=== PATIENT | female | born 1945 | race Caucasian/White ===

== ENCOUNTER 2020-10-11 19:01 | Inpatient (IN) ==
[2020-10-11] MEDS ORDERED: Morphine 4 MG/ML VIAL (1 ml) IV ONE (20:30)
[2020-10-11] MEDS ORDERED: Ondansetron 4 mg VIAL 2 MG/ML 2 ml VIAL IV ONE (20:30)
[2020-10-11] MEDS ORDERED: Iodixanol (CONTRAST) 320 MG/ML 100 ML SDV IV ONE (21:25)
[2020-10-11 21:43] LABS: ABS Basophils 0.1 10^3/ul (0-0.2); ABS Eosinophils 0.1 10^3/ul (0-0.6); ABS Lymphocytes 1.6 10^3/ul (1.0-4.8); ABS Monocytes 0.7 10^3/ul (0-0.8); ABS Neutrophils 11.2 10^3/ul (1.5-7.7); Eosinophil % 0.6 %; Hematocrit 39 % (35-47); Hemoglobin 13.3 g/dL (12.0-16.0); Lymphocyte % 11.8 %; Mean Corpuscular HGB Conc 34 g/dL (31-36); Mean Corpuscular Hemoglobin 29 pg (27-31); Mean Corpuscular Volume 84 fL (80-97); Mean Platelet Volume 10.1 fL (7.4-10.4); Platelet Count 183 10^3/uL (150-450); Red Blood Count 4.62 10^6 /uL (3.70-4.87); Red Cell Distribution Width 14 % (10-15); White Blood Count 13.6 10^3/uL (3.5-10.8)
[2020-10-11 22:02] LABS: ALT 22 U/L (7-52); AST 17 U/L (13-39); Albumin 4.1 g/dL (3.2-5.2); Albumin/Globulin Ratio 1.4 (1-3); Alkaline Phosphatase 97 U/L (34-104); BUN/Creatinine Ratio 14.9 (8-20); Blood Urea Nitrogen 11 mg/dL (6-24); C Reactive Protein 184.71 mg/L (<8.01); CO2 Carbon Dioxide 29 mmol/L (22-32); Calcium 9.5 mg/dL (8.6-10.3); Chloride 99 mmol/L (101-111); EGFR African American 93.1 (>60); EGFR Non-African American 76.9 (>60); Glucose 139 mg/dL (70-100); Lipase < 10 U/L (11.0-82.0); Sodium 136 mmol/L (135-145); Total Protein 7.1 g/dL (6.4-8.9)
[2020-10-11 22:04] LABS: Anion Gap 8 mmol/L (2-11); Potassium 2.6 mmol/L (3.5-5.0)
[2020-10-11] MEDS ORDERED: Potassium Chlor 20 meq TAB.ER PO ONE (22:35)
[2020-10-11 23:29] LABS: Urine Appearance Cloudy; Urine Bilirubin Negative (Negative); Urine Blood Negative (Negative); Urine Color Yellow; Urine Glucose Negative (Negative); Urine Ketones Negative (Negative); Urine Nitrite Negative (Negative); Urine Protein Negative (Negative); Urine Specific Gravity 1.039 (1.010-1.030); Urine Urobilinogen Negative (Negative)
[2020-10-11] MEDS ORDERED: Piperacillin/Tazobac ADVAN 3.375 GM in NS 0.9% 100 ml BAG 100 ML IV ONE (23:29)
[2020-10-11 23:45] LABS: Urine Bacteria 1+ (Absent); Urine Red Blood Cell 1+(3-5/hpf) (Absent); Urine Squamous Epithelial Cell Present (Absent); Urine White Blood Cell 1+(6-10/hpf) (Absent)
[2020-10-11 23:58] LABS: Magnesium 1.8 mg/dL (1.9-2.7)
[2020-10-12] MEDS ORDERED: Magnesium Sulfate IV 1GM/100ML 1 GM/100 ML BAG IV ONE (00:25)
[2020-10-12] MEDS ORDERED: Al Hydrox/Mg Hydrox/Simet LIQ 30 ML UDC PO PRN (00:30)
[2020-10-12] MEDS ORDERED: Ondansetron 4 mg VIAL 2 MG/ML 2 ml VIAL IV PRN (00:30)
[2020-10-12] MEDS ORDERED: Zosyn per Pharmacy NOTE FOLLOW UP SCH (01:00)
[2020-10-12] MEDS: KCL 20 MEQ/100 ML IVPREMIX 20 MEQ/100 ML BAG IV SCH ×5 (01:20→07:57)
[2020-10-12] MEDS: ZOSYN 3.375 GM Q8H per EXTENDED INFUSION IV SCH ×3 (04:16→20:04)
[2020-10-12 07:10] LABS: ABS Monocytes 0.4 10^3/ul (0-0.8); ABS Neutrophils 11.5 10^3/ul (1.5-7.7); Eosinophil % 0.1 %; Hematocrit 36 % (35-47); Hemoglobin 12.2 g/dL (12.0-16.0); Mean Corpuscular HGB Conc 34 g/dL (31-36); Mean Corpuscular Hemoglobin 29 pg (27-31); Mean Corpuscular Volume 84 fL (80-97); Mean Platelet Volume 10.7 fL (7.4-10.4); Platelet Count 164 10^3/uL (150-450); Red Blood Count 4.24 10^6 /uL (3.70-4.87); Red Cell Distribution Width 14 % (10-15)
[2020-10-12 07:38] LABS: BUN/Creatinine Ratio 12.3 (8-20); Calcium 8.8 mg/dL (8.6-10.3); EGFR African American 94.6 (>60); EGFR Non-African American 78.1 (>60); Magnesium 2.3 mg/dL (1.9-2.7); Potassium 3.2 mmol/L (3.5-5.0)
[2020-10-12] MEDS ORDERED: Calcium Polycarbophil 625mg TB PO SCH (09:00)
[2020-10-12] MEDS: Enoxaparin 40 MG/0.4 ML SYR SUBCUT SCH (09:59)
[2020-10-12] MEDS: Multivitamins/Minerals TAB PO SCH (09:59)
[2020-10-12] MEDS: Pilocarpine 2% OPTH.SOL 15 ML BTL BOTH EYES SCH ×4 (09:59→20:10)
[2020-10-12] MEDS: Latanoprost 0.005% 2.5 ml BTL BOTH EYES SCH (17:14)
[2020-10-13] MEDS: ZOSYN 3.375 GM Q8H per EXTENDED INFUSION IV SCH ×3 (03:27→20:38)
[2020-10-13 06:26] LABS: ABS Eosinophils 0.1 10^3/ul (0-0.6); ABS Lymphocytes 1.4 10^3/ul (1.0-4.8); ABS Monocytes 0.3 10^3/ul (0-0.8); ABS Neutrophils 4.6 10^3/ul (1.5-7.7); Eosinophil % 1.8 %; Hematocrit 33 % (35-47); Hemoglobin 11.7 g/dL (12.0-16.0); Lymphocyte % 22.1 %; Mean Corpuscular HGB Conc 35 g/dL (31-36); Mean Corpuscular Hemoglobin 30 pg (27-31); Mean Corpuscular Volume 85 fL (80-97); Platelet Count 162 10^3/uL (150-450); Red Blood Count 3.94 10^6 /uL (3.70-4.87); Red Cell Distribution Width 15 % (10-15); White Blood Count 6.5 10^3/uL (3.5-10.8)
[2020-10-13 06:46] LABS: BUN/Creatinine Ratio 10.9 (8-20); Calcium 8.6 mg/dL (8.6-10.3); EGFR African American 110.1 (>60); Potassium 2.9 mmol/L (3.5-5.0)
[2020-10-13] MEDS: Enoxaparin 40 MG/0.4 ML SYR SUBCUT SCH (08:26)
[2020-10-13] MEDS: Multivitamins/Minerals TAB PO SCH (08:27)
[2020-10-13] MEDS: Pilocarpine 2% OPTH.SOL 15 ML BTL BOTH EYES SCH ×4 (08:34→20:39)
[2020-10-13] MEDS ORDERED: Influenza VAC *QUAD* 2020-21* 0.5 ML SYRINGE IM ONE (09:00)
[2020-10-13] MEDS ORDERED: Potassium Chloride LIQUID 20 MEQ/15 ML LIQUID PO ONE (10:03)
[2020-10-13 10:18] LABS: Magnesium 2.1 mg/dL (1.9-2.7)
[2020-10-13] MEDS: KCL 20 MEQ/100 ML IVPREMIX 20 MEQ/100 ML BAG IV SCH ×3 (10:48→17:00)
[2020-10-13] MEDS: Latanoprost 0.005% 2.5 ml BTL BOTH EYES SCH (17:00)
[2020-10-14] MEDS: ZOSYN 3.375 GM Q8H per EXTENDED INFUSION IV SCH (04:00)
[2020-10-14 06:23] LABS: ABS Eosinophils 0.1 10^3/ul (0-0.6); ABS Lymphocytes 1.3 10^3/ul (1.0-4.8); ABS Monocytes 0.3 10^3/ul (0-0.8); ABS Neutrophils 3.8 10^3/ul (1.5-7.7); Eosinophil % 2.5 %; Hematocrit 33 % (35-47); Hemoglobin 11.2 g/dL (12.0-16.0); Lymphocyte % 23.2 %; Mean Corpuscular HGB Conc 34 g/dL (31-36); Mean Corpuscular Hemoglobin 29 pg (27-31); Mean Corpuscular Volume 85 fL (80-97); Mean Platelet Volume 9.5 fL (7.4-10.4); Platelet Count 183 10^3/uL (150-450); Red Blood Count 3.87 10^6 /uL (3.70-4.87); Red Cell Distribution Width 14 % (10-15); White Blood Count 5.5 10^3/uL (3.5-10.8)
[2020-10-14 07:01] LABS: BUN/Creatinine Ratio 9.5 (8-20); Calcium 8.4 mg/dL (8.6-10.3); EGFR African American 93.1 (>60); EGFR Non-African American 76.9 (>60); Magnesium 1.9 mg/dL (1.9-2.7); Potassium 3.7 mmol/L (3.5-5.0)
[2020-10-14] MEDS: Enoxaparin 40 MG/0.4 ML SYR SUBCUT SCH (09:49)
[2020-10-14] MEDS: Multivitamins/Minerals TAB PO SCH (09:49)
[2020-10-14] MEDS: Pilocarpine 2% OPTH.SOL 15 ML BTL BOTH EYES SCH (09:50)
[2020-10-14 10:12] VITALS: BP 138/55
== END 2020-10-14 12:45 | disposition home or self-care (01) | DRG 392 ==
LOC: ED 19:01 → MEDTELE 19:01
PROVIDERS: ADMIT Student in an Organized Health Care Education/Training Program; ATTEND Internal Medicine

== ENCOUNTER 2020-11-18 15:29 | Inpatient (IN) ==
[2020-11-18 19:19] LABS: ABS Basophils 0.1 10^3/ul (0-0.2); ABS Eosinophils 0.1 10^3/ul (0-0.6); ABS Lymphocytes 1.9 10^3/ul (1.0-4.8); ABS Monocytes 0.3 10^3/ul (0-0.8); ABS Neutrophils 5.2 10^3/ul (1.5-7.7); Eosinophil % 1.8 %; Hematocrit 40 % (35-47); Hemoglobin 13.9 g/dL (12.0-16.0); Lymphocyte % 25.1 %; Mean Corpuscular HGB Conc 35 g/dL (31-36); Mean Corpuscular Hemoglobin 29 pg (27-31); Mean Corpuscular Volume 84 fL (80-97); Mean Platelet Volume 9.9 fL (7.4-10.4); Platelet Count 192 10^3/uL (150-450); Red Blood Count 4.77 10^6 /uL (3.70-4.87); Red Cell Distribution Width 15 % (10-15); White Blood Count 7.6 10^3/uL (3.5-10.8)
[2020-11-18 19:20] LABS: Urine Appearance Cloudy; Urine Color Straw; Urine Specific Gravity 1.017 (1.010-1.030); Urine Urobilinogen Negative (Negative)
[2020-11-18 19:21] LABS: Urine Bilirubin Negative (Negative); Urine Blood Negative (Negative); Urine Glucose Negative (Negative); Urine Ketones Negative (Negative); Urine Nitrite Positive (Negative); Urine Protein Negative (Negative)
[2020-11-18 19:29] LABS: Urine Bacteria Absent (Absent); Urine Red Blood Cell Trace(0-2/hpf) (Absent); Urine Squamous Epithelial Cell Present (Absent); Urine White Blood Cell Trace(0-5/hpf) (Absent)
[2020-11-18 19:44] LABS: Albumin 4.1 g/dL (3.2-5.2); Albumin/Globulin Ratio 1.5 (1-3); BUN/Creatinine Ratio 11.8 (8-20); C Reactive Protein 11.42 mg/L (<8.01); Calcium 9.6 mg/dL (8.6-10.3); EGFR African American 102.6 (>60); EGFR Non-African American 84.8 (>60); Globulin 2.8 g/dL (2-4); Potassium 2.9 mmol/L (3.5-5.0); Total Bilirubin 0.4 mg/dL (0.2-1.0); Total Protein 6.9 g/dL (6.4-8.9)
[2020-11-18] MEDS ORDERED: Piperacillin/Tazobac ADVAN 3.375 GM in NS 0.9% 100 ml BAG 100 ML IV ONE (19:44)
[2020-11-18] MEDS ORDERED: Potassium Chlor 20 meq TAB.ER PO ONE (21:54)
[2020-11-18] MEDS ORDERED: Zosyn per Pharmacy NOTE FOLLOW UP SCH (22:00)
[2020-11-18] MEDS ORDERED: NS 0.9% w/ 40 Meq KCL 1000 ML 1,000 ML IV SCH (22:00)
[2020-11-18] MEDS ORDERED: Ondansetron 4 mg VIAL 2 MG/ML 2 ml VIAL IV PRN (22:04)
[2020-11-18 22:44] LABS: Magnesium 1.9 mg/dL (1.9-2.7)
[2020-11-18] MEDS ORDERED: Latanoprost 0.005% 2.5 ml BTL BOTH EYES SCH (23:00)
[2020-11-19] MEDS: Pilocarpine 2% OPTH.SOL 15 ML BTL BOTH EYES SCH ×5 (00:27→21:17)
[2020-11-19] MEDS ORDERED: Bimatoprost 0.01% OPHTH (NF) 2.5 ML BTL BOTH EYES SCH (01:00)
[2020-11-19] MEDS: ZOSYN 3.375 GM Q8H per EXTENDED INFUSION IV SCH ×3 (01:05→16:12)
[2020-11-19 04:50] LABS: ABS Eosinophils 0.1 10^3/ul (0-0.6); ABS Lymphocytes 1.9 10^3/ul (1.0-4.8); ABS Monocytes 0.3 10^3/ul (0-0.8); ABS Neutrophils 3.4 10^3/ul (1.5-7.7); Eosinophil % 2.1 %; Hematocrit 36 % (35-47); Hemoglobin 12.1 g/dL (12.0-16.0); Lymphocyte % 32.5 %; Mean Corpuscular HGB Conc 34 g/dL (31-36); Mean Corpuscular Hemoglobin 29 pg (27-31); Mean Corpuscular Volume 85 fL (80-97); Mean Platelet Volume 9.5 fL (7.4-10.4); Platelet Count 155 10^3/uL (150-450); Red Blood Count 4.16 10^6 /uL (3.70-4.87); Red Cell Distribution Width 15 % (10-15); White Blood Count 5.7 10^3/uL (3.5-10.8)
[2020-11-19 05:07] LABS: Albumin 3.3 g/dL (3.2-5.2); Albumin/Globulin Ratio 1.4 (1-3); BUN/Creatinine Ratio 10.1 (8-20); C Reactive Protein 9.17 mg/L (<8.01); Calcium 8.5 mg/dL (8.6-10.3); EGFR African American 86.3 (>60); EGFR Non-African American 71.3 (>60); Globulin 2.4 g/dL (2-4); Potassium 3.6 mmol/L (3.5-5.0); Total Bilirubin 0.4 mg/dL (0.2-1.0); Total Protein 5.7 g/dL (6.4-8.9)
[2020-11-19] MEDS: Heparin 5000 UNITS/ML 1 mL VIAL SUBCUT SCH ×3 (06:03→21:16)
[2020-11-19] MEDS: Multivitamins/Minerals TAB PO SCH (09:00)
[2020-11-19] MEDS: PTO: Bimatoprost 0.01% OPHTH (NF) 2.5 ML BTL BOTH EYES SCH (22:14)
[2020-11-20] MEDS: ZOSYN 3.375 GM Q8H per EXTENDED INFUSION IV SCH ×4 (00:02→23:47)
[2020-11-20 05:44] LABS: ABS Eosinophils 0.2 10^3/ul (0-0.6); ABS Lymphocytes 1.8 10^3/ul (1.0-4.8); ABS Monocytes 0.2 10^3/ul (0-0.8); ABS Neutrophils 2.4 10^3/ul (1.5-7.7); Eosinophil % 3.4 %; Hematocrit 35 % (35-47); Hemoglobin 12.1 g/dL (12.0-16.0); Lymphocyte % 38.8 %; Mean Corpuscular HGB Conc 34 g/dL (31-36); Mean Corpuscular Hemoglobin 29 pg (27-31); Mean Corpuscular Volume 85 fL (80-97); Mean Platelet Volume 9.5 fL (7.4-10.4); Platelet Count 156 10^3/uL (150-450); Red Blood Count 4.15 10^6 /uL (3.70-4.87); Red Cell Distribution Width 14 % (10-15); White Blood Count 4.6 10^3/uL (3.5-10.8)
[2020-11-20 06:00] LABS: BUN/Creatinine Ratio 11.3 (8-20); Calcium 8.8 mg/dL (8.6-10.3); EGFR African American 97.6 (>60); EGFR Non-African American 80.7 (>60); Potassium 3.3 mmol/L (3.5-5.0)
[2020-11-20] MEDS: Heparin 5000 UNITS/ML 1 mL VIAL SUBCUT SCH ×3 (06:19→21:16)
[2020-11-20] MEDS: Pilocarpine 2% OPTH.SOL 15 ML BTL BOTH EYES SCH ×4 (08:12→20:37)
[2020-11-20] MEDS: Multivitamins/Minerals TAB PO SCH (08:13)
[2020-11-20] MEDS ORDERED: Potassium Chlor 20 meq TAB.ER PO ONE (14:31)
[2020-11-20] MEDS: PTO: Bimatoprost 0.01% OPHTH (NF) 2.5 ML BTL BOTH EYES SCH (21:18)
[2020-11-21] MEDS: Pilocarpine 2% OPTH.SOL 15 ML BTL BOTH EYES SCH ×4 (08:46→22:03)
[2020-11-21] MEDS: ZOSYN 3.375 GM Q8H per EXTENDED INFUSION IV SCH ×2 (08:47→16:47)
[2020-11-21] MEDS: Multivitamins/Minerals TAB PO SCH (08:47)
[2020-11-21 13:45] LABS: INR 1.08 (0.82-1.09)
[2020-11-21] MEDS ORDERED: Potassium Chlor 20 meq TAB.ER PO ONE (16:00)
[2020-11-21] MEDS: PTO: Bimatoprost 0.01% OPHTH (NF) 2.5 ML BTL BOTH EYES SCH (22:09)
[2020-11-22] MEDS: ZOSYN 3.375 GM Q8H per EXTENDED INFUSION IV SCH (00:20)
[2020-11-22 07:39] VITALS: BP 145/64
[2020-11-22 08:13] LABS: Calcium 8.7 mg/dL (8.6-10.3)
[2020-11-22 08:18] LABS: BUN/Creatinine Ratio 11.8 (8-20); EGFR African American 90.3 (>60); EGFR Non-African American 74.6 (>60)
[2020-11-22] MEDS: Multivitamins/Minerals TAB PO SCH (09:51)
[2020-11-22] MEDS: Pilocarpine 2% OPTH.SOL 15 ML BTL BOTH EYES SCH (09:52)
== END 2020-11-22 11:16 | disposition home or self-care (01) | DRG 392 ==
LOC: ED 15:29 → SSU 22:04
PROVIDERS: ADMIT Internal Medicine; ATTEND Hospitalist

== ENCOUNTER 2021-11-23 14:45 | Inpatient (IN) ==
[2021-11-23] MEDS ORDERED: Ondansetron ODT 4 mg TAB 4 MG TAB PO ONE (16:05)
[2021-11-23 16:33] LABS: ABS Basophils 0.1 10^3/ul (0-0.2); ABS Eosinophils 0.1 10^3/ul (0-0.6); ABS Lymphocytes 0.8 10^3/ul (1.0-4.8); ABS Monocytes 0.6 10^3/ul (0-0.8); Eosinophil % 0.5 %; Hematocrit 36 % (35-47); Hemoglobin 12.2 g/dL (12.0-16.0); Lymphocyte % 6.7 %; Mean Corpuscular HGB Conc 34 g/dL (31-36); Mean Corpuscular Hemoglobin 29 pg (27-31); Mean Corpuscular Volume 84 fL (80-97); Mean Platelet Volume 8.8 fL (7.4-10.4); Platelet Count 324 10^3/uL (150-450); Red Blood Count 4.29 10^6 /uL (3.70-4.87); Red Cell Distribution Width 15 % (10-15); White Blood Count 12.5 10^3/uL (3.5-10.8)
[2021-11-23 16:52] LABS: Albumin 3.8 g/dL (3.2-5.2); Albumin/Globulin Ratio 1.1 (1-3); C Reactive Protein 159.48 mg/L (<8.01); Calcium 10.3 mg/dL (8.6-10.3); Globulin 3.6 g/dL (2-4); Potassium 3.8 mmol/L (3.5-5.0); Total Bilirubin 0.5 mg/dL (0.2-1.0); Total Protein 7.4 g/dL (6.4-8.9); eGFR CKD-EPI 73.9 (>60)
[2021-11-23] MEDS ORDERED: Iodixanol (CONTRAST) 320 MG/ML 100 ML SDV IV ONE (17:27)
[2021-11-23] MEDS ORDERED: NS 0.9% 1000 ml BAG 1,000 ML IV ONE (18:45)
[2021-11-23] MEDS ORDERED: Metoclopramide 5 MG/ML VIAL (10 mg) IV ONE (18:45)
[2021-11-23] MEDS ORDERED: Prochlorperazine 5 mg/ml 2 ml VIAL (10 mg) IV ONE (19:24)
[2021-11-23] MEDS ORDERED: Prochlorperazine 5 mg/ml 2 ml VIAL (10 mg) IM ONE (21:26)
[2021-11-24] MEDS: NS 0.9% 1000 ml BAG 1,000 ML IV SCH ×3 (03:44→22:33)
[2021-11-24 04:09] LABS: Urine Appearance Cloudy; Urine Bilirubin Negative (Negative); Urine Blood 1+ (Negative); Urine Color Yellow; Urine Glucose Negative (Negative); Urine Ketones Negative (Negative); Urine Nitrite Negative (Negative); Urine Protein 1+(30 mg/dL) (Negative); Urine Specific Gravity 1.041 (1.002-1.030); Urine Urobilinogen Negative (Negative)
[2021-11-24 04:23] LABS: Calcium 9.7 mg/dL (8.6-10.3); Potassium 3.6 mmol/L (3.5-5.0); eGFR CKD-EPI 90.7 (>60)
[2021-11-24 04:46] LABS: Urine Bacteria 3+ (Absent); Urine Red Blood Cell 1+(3-5/hpf) (Absent); Urine White Blood Cell 2+(11-20/hpf) (Absent); Urine Yeast Present (Absent)
[2021-11-24] MEDS ORDERED: Diatrizoate Meg/Sod(CONTRAST) 30 ML ORAL.SOLN ONE (10:09)
[2021-11-24] MEDS ORDERED: Acetaminophen IV 1 GM/100ML 100 ML IV PRN (11:56)
[2021-11-24] MEDS: cefTRIAXone 1 gm/50 mL NS BAG 1 GM/50 ML BAG IVPB SCH (14:36)
[2021-11-24] MEDS: KCL 20 MEQ/100 ML IVPREMIX 20 MEQ/100 ML BAG IV SCH ×2 (14:40→16:40)
[2021-11-24] MEDS: Pilocarpine 2% OPTH.SOL 15 ML BTL BOTH EYES SCH ×2 (16:40→20:05)
[2021-11-24] MEDS ORDERED: Benzocaine/Butamben/Tetracain (CETACAINE - SINGLE USE) 5 gm TOPICAL ONE (18:55)
[2021-11-24] MEDS: Morphine 2 MG/ML SYRINGE IV PRN (20:06)
[2021-11-24] MEDS: Bimatoprost 0.01% OPHTH (NF) 2.5 ML BTL BOTH EYES SCH (20:06)
[2021-11-24] MEDS ORDERED: Latanoprost 0.005% 2.5 ml BTL BOTH EYES SCH (21:00)
[2021-11-24] MEDS: Ondansetron 4 mg VIAL 2 MG/ML 2 ml VIAL IV PRN (21:26)
[2021-11-24] MEDS: Acetaminophen IV 1 GM/100ML VI 100 ML IV PRN (23:35)
[2021-11-25] MEDS: Morphine 2 MG/ML SYRINGE IV PRN (01:48)
[2021-11-25 04:49] LABS: ABS Basophils 0.1 10^3/ul (0-0.2); ABS Eosinophils 0.1 10^3/ul (0-0.6); ABS Lymphocytes 0.9 10^3/ul (1.0-4.8); ABS Monocytes 0.7 10^3/ul (0-0.8); ABS Neutrophils 9.7 10^3/ul (1.5-7.7); Eosinophil % 0.8 %; Hematocrit 32 % (35-47); Hemoglobin 10.6 g/dL (12.0-16.0); Lymphocyte % 7.5 %; Mean Corpuscular HGB Conc 33 g/dL (31-36); Mean Corpuscular Hemoglobin 28 pg (27-31); Mean Corpuscular Volume 86 fL (80-97); Mean Platelet Volume 8.5 fL (7.4-10.4); Platelet Count 287 10^3/uL (150-450); Red Blood Count 3.77 10^6 /uL (3.70-4.87); Red Cell Distribution Width 15 % (10-15); White Blood Count 11.3 10^3/uL (3.5-10.8)
[2021-11-25 05:04] LABS: Albumin 2.9 g/dL (3.2-5.2); Calcium 8.9 mg/dL (8.6-10.3); Globulin 2.9 g/dL (2-4); Potassium 4.2 mmol/L (3.5-5.0); Total Bilirubin 0.4 mg/dL (0.2-1.0); Total Protein 5.8 g/dL (6.4-8.9); eGFR CKD-EPI 93.8 (>60)
[2021-11-25] MEDS: Pilocarpine 2% OPTH.SOL 15 ML BTL BOTH EYES SCH ×4 (08:00→20:18)
[2021-11-25] MEDS: Acetaminophen IV 1 GM/100ML VI 100 ML IV PRN ×3 (08:10→21:41)
[2021-11-25] MEDS: NS 0.9% 1000 ml BAG 1,000 ML IV SCH (08:38)
[2021-11-25] MEDS ORDERED: [UNRECOGNIZED DRUG - OTHER] ONE (11:00)
[2021-11-25] MEDS: HYDROmorphone 0.5 MG/0.5 ML SYRINGE IV SLOW PU PRN (11:34)
[2021-11-25] MEDS: cefTRIAXone 1 gm/50 mL NS BAG 1 GM/50 ML BAG IVPB SCH (13:03)
[2021-11-25] MEDS: D5NS 0.9% 1000 ml BAG 1,000 ML IV SCH (16:55)
[2021-11-25] MEDS: Bimatoprost 0.01% OPHTH (NF) 2.5 ML BTL BOTH EYES SCH (20:18)
[2021-11-26] MEDS: HYDROmorphone 0.5 MG/0.5 ML SYRINGE IV SLOW PU PRN (01:28)
[2021-11-26] MEDS: D5NS 0.9% 1000 ml BAG 1,000 ML IV SCH ×2 (03:07→14:36)
[2021-11-26] MEDS: Acetaminophen IV 1 GM/100ML VI 100 ML IV PRN ×2 (04:55→05:08)
[2021-11-26] MEDS ORDERED: Phenol 1.4% Throat Spray 177 ml BTL MT PRN (05:12)
[2021-11-26 06:21] LABS: ABS Lymphocytes 0.6 10^3/ul (1.0-4.8); ABS Monocytes 0.6 10^3/ul (0-0.8); Eosinophil % 0.1 %; Hematocrit 32 % (35-47); Hemoglobin 10.5 g/dL (12.0-16.0); Lymphocyte % 5.1 %; Mean Corpuscular HGB Conc 33 g/dL (31-36); Mean Corpuscular Hemoglobin 28 pg (27-31); Mean Corpuscular Volume 86 fL (80-97); Mean Platelet Volume 8.5 fL (7.4-10.4); Platelet Count 323 10^3/uL (150-450); Red Blood Count 3.74 10^6 /uL (3.70-4.87); Red Cell Distribution Width 16 % (10-15); White Blood Count 12.3 10^3/uL (3.5-10.8)
[2021-11-26 06:37] LABS: Globulin 3.1 g/dL (2-4); Magnesium 2.1 mg/dL (1.9-2.7); Potassium 3.8 mmol/L (3.5-5.0); Total Bilirubin 0.3 mg/dL (0.2-1.0); Total Protein 6.1 g/dL (6.4-8.9); eGFR CKD-EPI 95.3 (>60)
[2021-11-26] MEDS: Pilocarpine 2% OPTH.SOL 15 ML BTL BOTH EYES SCH ×4 (08:25→20:37)
[2021-11-26] MEDS: cefTRIAXone 1 gm/50 mL NS BAG 1 GM/50 ML BAG IVPB SCH (14:33)
[2021-11-26] MEDS ORDERED: Acetylcysteine INHALATION SOL 200 MG/ML NEB.SOLN 10 ML INH ONE (15:22)
[2021-11-26] MEDS ORDERED: Albuterol 2.5mg/3 ml (0.083%) NEB.SOLN INH ONE (16:42)
[2021-11-26] MEDS: Enoxaparin 40 MG/0.4 ML SYR SUBCUT SCH (16:57)
[2021-11-26] MEDS: ceFAZolin 1 GM in Dextrose 1 GM/50 ML BAG IVPB SCH (16:57)
[2021-11-26] MEDS ORDERED: Albuterol HFA INHALER 8 gm MDI INH PRN (17:19)
[2021-11-26] MEDS: Bimatoprost 0.01% OPHTH (NF) 2.5 ML BTL BOTH EYES SCH (20:38)
[2021-11-27] MEDS: ceFAZolin 1 GM in Dextrose 1 GM/50 ML BAG IVPB SCH ×2 (00:03→07:48)
[2021-11-27] MEDS: D5NS 0.9% 1000 ml BAG 1,000 ML IV SCH ×2 (00:04→11:33)
[2021-11-27] MEDS: Acetaminophen IV 1 GM/100ML VI 100 ML IV PRN ×4 (00:25→20:45)
[2021-11-27] MEDS: Ondansetron 4 mg VIAL 2 MG/ML 2 ml VIAL IV PRN ×2 (05:00→19:23)
[2021-11-27 06:35] LABS: ABS Lymphocytes 0.7 10^3/ul (1.0-4.8); ABS Monocytes 0.6 10^3/ul (0-0.8); ABS Neutrophils 10.6 10^3/ul (1.5-7.7); Eosinophil % 0.1 %; Hematocrit 29 % (35-47); Hemoglobin 9.5 g/dL (12.0-16.0); Lymphocyte % 5.6 %; Mean Corpuscular HGB Conc 33 g/dL (31-36); Mean Corpuscular Hemoglobin 28 pg (27-31); Mean Corpuscular Volume 86 fL (80-97); Mean Platelet Volume 8.8 fL (7.4-10.4); Platelet Count 331 10^3/uL (150-450); Red Blood Count 3.38 10^6 /uL (3.70-4.87); Red Cell Distribution Width 16 % (10-15)
[2021-11-27 06:57] LABS: Calcium 8.7 mg/dL (8.6-10.3); Magnesium 1.9 mg/dL (1.9-2.7); Potassium 3.4 mmol/L (3.5-5.0); eGFR CKD-EPI 96.6 (>60)
[2021-11-27] MEDS: HYDROmorphone 0.5 MG/0.5 ML SYRINGE IV SLOW PU PRN ×2 (07:48→20:06)
[2021-11-27] MEDS: Pilocarpine 2% OPTH.SOL 15 ML BTL BOTH EYES SCH ×4 (08:41→20:11)
[2021-11-27] MEDS ORDERED: KCL 20 MEQ/100 ML IVPREMIX 20 MEQ/100 ML BAG IV ONE (13:36)
[2021-11-27] MEDS: ceFAZolin 1 GM Q8H (ADVAN) IVPB SCH (17:15)
[2021-11-27] MEDS: Enoxaparin 40 MG/0.4 ML SYR SUBCUT SCH (17:15)
[2021-11-27] MEDS ORDERED: Iodixanol (CONTRAST) 320 MG/ML 100 ML SDV IV ONE (18:33)
[2021-11-27] MEDS: Bimatoprost 0.01% OPHTH (NF) 2.5 ML BTL BOTH EYES SCH (20:51)
[2021-11-27] MEDS ORDERED: Furosemide 40 mg/4 ml IV VIAL IV ONE ×2 (21:07)
[2021-11-27] MEDS: Prochlorperazine 5 mg/ml 2 ml VIAL (10 mg) IV PRN (21:52)
[2021-11-27 21:57] LABS: INR 1.77 (0.86-1.15)
[2021-11-28] MEDS: Ondansetron 4 mg VIAL 2 MG/ML 2 ml VIAL IV PRN (00:42)
[2021-11-28] MEDS: ceFAZolin 1 GM Q8H (ADVAN) IVPB SCH ×4 (00:44→23:43)
[2021-11-28] MEDS: Acetaminophen IV 1 GM/100ML VI 100 ML IV PRN ×4 (03:08→20:58)
[2021-11-28] MEDS ORDERED: Hemorrhoidal OINT 1 TUBE PR PRN (03:36)
[2021-11-28 04:58] LABS: ABS Basophils 0.1 10^3/ul (0-0.2); ABS Monocytes 0.6 10^3/ul (0-0.8); ABS Neutrophils 11.8 10^3/ul (1.5-7.7); Eosinophil % 0.1 %; Hematocrit 27 % (35-47); Hemoglobin 8.6 g/dL (12.0-16.0); Lymphocyte % 7.5 %; Mean Corpuscular HGB Conc 32 g/dL (31-36); Mean Corpuscular Hemoglobin 28 pg (27-31); Mean Corpuscular Volume 85 fL (80-97); Mean Platelet Volume 8.1 fL (7.4-10.4); Nucleated Red Blood Cells % 0.1; Platelet Count 352 10^3/uL (150-450); Red Blood Count 3.14 10^6 /uL (3.70-4.87); Red Cell Distribution Width 16 % (10-15); White Blood Count 13.5 10^3/uL (3.5-10.8)
[2021-11-28 05:15] LABS: Calcium 8.8 mg/dL (8.6-10.3); Magnesium 1.8 mg/dL (1.9-2.7); Potassium 3.5 mmol/L (3.5-5.0); eGFR CKD-EPI 94.5 (>60)
[2021-11-28] MEDS: HYDROmorphone 0.5 MG/0.5 ML SYRINGE IV SLOW PU PRN (05:45)
[2021-11-28] MEDS: Prochlorperazine 5 mg/ml 2 ml VIAL (10 mg) IV PRN ×2 (05:45→20:59)
[2021-11-28] MEDS ORDERED: Magnesium Sulfate 2 gm BAG 2 GM/50 ML BAG IVPB ONE (06:35)
[2021-11-28] MEDS: Pilocarpine 2% OPTH.SOL 15 ML BTL BOTH EYES SCH ×4 (08:41→20:58)
[2021-11-28 14:28] LABS: ABS Basophils 0.1 10^3/ul (0-0.2); ABS Lymphocytes 1.2 10^3/ul (1.0-4.8); ABS Monocytes 0.7 10^3/ul (0-0.8); ABS Neutrophils 12.6 10^3/ul (1.5-7.7); Eosinophil % 0.1 %; Hematocrit 26 % (35-47); Hemoglobin 8.4 g/dL (12.0-16.0); Lymphocyte % 8.3 %; Mean Corpuscular HGB Conc 32 g/dL (31-36); Mean Corpuscular Hemoglobin 28 pg (27-31); Mean Corpuscular Volume 86 fL (80-97); Mean Platelet Volume 8.4 fL (7.4-10.4); Platelet Count 383 10^3/uL (150-450); Red Cell Distribution Width 16 % (10-15); White Blood Count 14.6 10^3/uL (3.5-10.8)
[2021-11-28 16:42] LABS: Body Fluid Appearance Bloody; Body Fluid Color Red; Body Fluid Source Pleural Fluid
[2021-11-28 17:23] LABS: Body Fluid Mono 3 %; Body Fluid Other Cells 2; Body Fluid Total Cells Counted 200
[2021-11-28 17:26] LABS: Body Fluid WBC 3872 /mcL
[2021-11-28 18:41] LABS: ABS Basophils 0.1 10^3/ul (0-0.2); ABS Lymphocytes 1.6 10^3/ul (1.0-4.8); ABS Monocytes 0.7 10^3/ul (0-0.8); ABS Neutrophils 12.1 10^3/ul (1.5-7.7); Eosinophil % 0.3 %; Hematocrit 25 % (35-47); Hemoglobin 8.2 g/dL (12.0-16.0); Lymphocyte % 11.2 %; Mean Corpuscular HGB Conc 32 g/dL (31-36); Mean Corpuscular Hemoglobin 28 pg (27-31); Mean Corpuscular Volume 85 fL (80-97); Mean Platelet Volume 8.5 fL (7.4-10.4); Nucleated Red Blood Cells % 0.1; Platelet Count 377 10^3/uL (150-450); Red Blood Count 2.97 10^6 /uL (3.70-4.87); Red Cell Distribution Width 16 % (10-15); White Blood Count 14.5 10^3/uL (3.5-10.8)
[2021-11-28 23:41] LABS: ABS Basophils 0.1 10^3/ul (0-0.2); ABS Eosinophils 0.1 10^3/ul (0-0.6); ABS Lymphocytes 1.2 10^3/ul (1.0-4.8); ABS Monocytes 0.7 10^3/ul (0-0.8); ABS Neutrophils 11.6 10^3/ul (1.5-7.7); Eosinophil % 0.5 %; Hematocrit 24 % (35-47); Hemoglobin 7.9 g/dL (12.0-16.0); Lymphocyte % 8.7 %; Mean Corpuscular HGB Conc 32 g/dL (31-36); Mean Corpuscular Hemoglobin 27 pg (27-31); Mean Corpuscular Volume 85 fL (80-97); Mean Platelet Volume 8.1 fL (7.4-10.4); Nucleated Red Blood Cells % 0.1; Platelet Count 322 10^3/uL (150-450); Red Blood Count 2.89 10^6 /uL (3.70-4.87); Red Cell Distribution Width 16 % (10-15); White Blood Count 13.6 10^3/uL (3.5-10.8)
[2021-11-28] MEDS: Bimatoprost 0.01% OPHTH (NF) 2.5 ML BTL BOTH EYES SCH (23:42)
[2021-11-29] MEDS: Prochlorperazine 5 mg/ml 2 ml VIAL (10 mg) IV PRN ×2 (04:07→16:27)
[2021-11-29] MEDS: Acetaminophen IV 1 GM/100ML VI 100 ML IV PRN ×3 (04:16→20:23)
[2021-11-29 06:54] LABS: ABS Lymphocytes 1.2 10^3/ul (1.0-4.8); ABS Monocytes 0.7 10^3/ul (0-0.8); ABS Neutrophils 10.4 10^3/ul (1.5-7.7); Eosinophil % 0.4 %; Hematocrit 23 % (35-47); Hemoglobin 7.3 g/dL (12.0-16.0); Lymphocyte % 9.5 %; Mean Corpuscular HGB Conc 33 g/dL (31-36); Mean Corpuscular Hemoglobin 28 pg (27-31); Mean Corpuscular Volume 86 fL (80-97); Mean Platelet Volume 8.7 fL (7.4-10.4); Nucleated Red Blood Cells % 0.1; Platelet Count 294 10^3/uL (150-450); Red Blood Count 2.62 10^6 /uL (3.70-4.87); Red Cell Distribution Width 16 % (10-15); White Blood Count 12.4 10^3/uL (3.5-10.8)
[2021-11-29 07:17] LABS: Calcium 8.3 mg/dL (8.6-10.3); Potassium 3.7 mmol/L (3.5-5.0); eGFR CKD-EPI 93.8 (>60)
[2021-11-29] MEDS: ceFAZolin 1 GM Q8H (ADVAN) IVPB SCH (08:45)
[2021-11-29] MEDS: Pilocarpine 2% OPTH.SOL 15 ML BTL BOTH EYES SCH ×4 (09:44→20:30)
[2021-11-29 11:37] LABS: Hematocrit 25 % (35-47); Mean Corpuscular HGB Conc 32 g/dL (31-36); Mean Corpuscular Hemoglobin 28 pg (27-31); Mean Corpuscular Volume 86 fL (80-97); Mean Platelet Volume 8.6 fL (7.4-10.4); Platelet Count 351 10^3/uL (150-450); Red Blood Count 2.88 10^6 /uL (3.70-4.87); Red Cell Distribution Width 16 % (10-15); White Blood Count 16.2 10^3/uL (3.5-10.8)
[2021-11-29 11:56] LABS: ABS Basophils 0.1 10^3/ul (0-0.2); ABS Lymphocytes 0.8 10^3/ul (1.0-4.8); ABS Monocytes 0.5 10^3/ul (0-0.8); ABS Neutrophils 14.8 10^3/ul (1.5-7.7); Eosinophil % 0.2 %; Lymphocyte % 4.8 %; Nucleated Red Blood Cells % 0.1
[2021-11-29 12:08] LABS: Magnesium 2.1 mg/dL (1.9-2.7)
[2021-11-29 13:35] LABS: Fluid Type: PLEURAL; Glucose, BF 84 mg/dL; Triglycerides (BF) 58 mg/dL
[2021-11-29 14:46] LABS: Lactate Dehydrogenase, BF 698 U/L
[2021-11-29 15:18] LABS: Albumin, BF 2.3 g/dL
[2021-11-29 19:31] LABS: Hematocrit 24 % (35-47); Mean Corpuscular HGB Conc 33 g/dL (31-36); Mean Corpuscular Hemoglobin 28 pg (27-31); Mean Corpuscular Volume 86 fL (80-97); Mean Platelet Volume 8.7 fL (7.4-10.4); Platelet Count 369 10^3/uL (150-450); Red Cell Distribution Width 16 % (10-15); White Blood Count 17.5 10^3/uL (3.5-10.8)
[2021-11-29 19:46] VITALS: BP 112/59
[2021-11-29] MEDS ORDERED: Calcium Carb (TUMS) 500 mg CHEW TAB PO ONE (21:00)
[2021-11-29 21:37] LABS: Hypochromasia 1+; Polychromasia 1+
[2021-11-29 21:38] LABS: ABS Basophils 0.1 10^3/ul (0-0.2); ABS Lymphocytes 1.2 10^3/ul (1.0-4.8); ABS Monocytes 1.1 10^3/ul (0-0.8); ABS Neutrophils 15.5 10^3/ul (1.5-7.7); Nucleated Red Blood Cells % 0.1
[2021-11-29] MEDS: Bimatoprost 0.01% OPHTH (NF) 2.5 ML BTL BOTH EYES SCH (22:06)
[2021-12-02 11:15] LABS: Fluid Type, Protein, Total PLEURAL; Total Protein, BF 4.2 g/dL
== END 2021-11-29 16:26 | disposition short-term general hospital (02) | DRG 181 ==
LOC: ED 14:45 → SUATTDRO 11-24 02:44 → EDHOLD 11-24 02:44 → SSU 11-24 14:02
PROVIDERS: ADMIT Hospitalist; ATTEND Internal Medicine